=== PATIENT | female | born 1995 | race Caucasian/White ===

== ENCOUNTER 2021-04-02 01:00 | Emergency (ER) | payer OTHER | END 2021-04-02 04:24 | disposition home or self-care (01) | LOC: ER 01:00 | DX: S23.3XXA Sprain of ligaments of thoracic spine, initial encounter (principal); Z88.6 Allergy status to analgesic agent; V49.40XA Driver injured in collision with unspecified motor vehicles in traffic accident, initial encounter; Y92.410 Unspecified street and highway as the place of occurrence of the external cause | CPT/HCPCS: 71046; 72070; 99284-25 ==